=== PATIENT | female | born 1995 | race African-American/Black ===

== ENCOUNTER 2017-12-16 13:11 | Emergency (ER) | payer OTHER ==
[~2017-12-16] VITALS: Ht 162.6 cm; Wt 56.7 kg
[~2017-12-16 13:11] MED LIST: BACTRIM DS TAB1 EACH PO
[2017-12-16] MEDS ORDERED: DOXYCYCLINE 10100 MG PO (16:25)
[2017-12-16 16:28] VITALS: BP 118/70
== END 2017-12-16 16:29 | disposition home or self-care (01) ==
LOC: ER 13:11
DX: L02.412 Cutaneous abscess of left axilla (principal); Z88.2 Allergy status to sulfonamides

== ENCOUNTER 2017-12-22 22:19 | Emergency (ER) | payer OTHER ==
[~2017-12-22] VITALS: Ht 162.6 cm; Wt 59.0 kg
[~2017-12-22 22:19] MED LIST changes: +DOXYCYCLINE 10100 MG PO; +MACROBID 100 M100 M1 PO; +PROMS25 WY RECTAL
[2017-12-22] MEDS ORDERED: PEPTO-BISM262 MG/15 PO (22:31)
[2017-12-22] MEDS ORDERED: PHENERGAN 25 MG25 M1 PO (22:31)
[2017-12-22] MEDS ORDERED: ONDANSETRON HCL4 M2 PO (22:31)
[2017-12-22 22:51] LABS: URINE BLOOD NEGATIVE (Negative); URINE CLARITY SL CLOUDY; URINE GLUCOSE-RANDOM* NEGATIVE (Negative); URINE KETONES 3+ (Negative); URINE NITRITE-REFLEX NEGATIVE (Negative); URINE PROTEIN (DIPSTICK) 1+ (Negative)
[2017-12-22 22:54] LABS: ABSOLUTE NEUTROPHILS 5.2 thou/uL (1.4-8.2); BASOPHILS 0.8 % (0.0-2.0); EOSINOPHILS 0.3 % (0.0-3.0); HEMATOCRIT 38.1 % (37.0-47.0); HEMOGLOBIN 12.8 gm/dL (12.0-15.0); LYMPHOCYTES 23.4 % (24.0-44.0); MCH 29.9 pg (26.0-34.0); MCHC 33.7 g/dL (28.0-37.0); MCV 88.9 fL (80.0-100.0); MONOCYTES 8.1 % (1.0-8.0); PLATELET COUNT 249 thou/uL (150-400); POLYS 67.4 % (36.0-66.0); RBC 4.28 mil/uL (4.20-5.00); RDW 12.7 % (10.5-14.5); WBC 7.7 thou/uL (4.0-11.0)
[2017-12-22 22:55] LABS: ICTOTEST (BILI CONFIRMATORY) Negative (Negative); URINE BILIRUBIN NEGATIVE (Negative); URINE COLOR DARK YELLOW; URINE LEUKOCYTES-REFLEX 1+ (Negative); URINE REDUCING SUBSTANCE NEGATIVE
[2017-12-22 23:02] LABS: ANION GAP 9 mmol/L (7-16); BUN 18 mg/dL (7-18); CALCIUM 9.1 mg/dL (8.5-10.1); CHLORIDE 102 mmol/L (98-107); CO2 27 mmol/L (21-32); GLUCOSE 96 mg/dL (74-106); POTASSIUM 3.1 mmol/L (3.5-5.1); SODIUM 138 mmol/L (136-145)
[2017-12-22 23:10] LABS: MUCUS >6 Heavy strn/LPF (None Seen); SQUAMOUS >10 Many /LPF (0-3); URINE RBC 0-2 Rare /HPF (0-2)
[2017-12-22 23:10] LABS: ALBUMIN 3.8 g/dL (3.4-5.0); LIPASE 171 U/L (73-393); MAGNESIUM 1.9 mg/dL (1.8-2.4); SGOT 12 U/L (15-37); SGPT 13 U/L (30-65); TOTAL BILIRUBIN 0.6 mg/dL (<0.1-1.0); TOTAL PROTEIN 8.1 g/dL (6.4-8.2); TROPONIN-I < 0.04 ng/mL (<0.06)
[2017-12-22 23:11] LABS: BACTERIA-REFLEX >30 Many /HPF (None Seen); CASTS None Seen /LPF (None Seen); CRYSTALS None Seen /LPF (None Seen); URINE WBC-REFLEX 6-15 Few /HPF (0-5)
[2017-12-23 00:58] VITALS: BP 106/68
[2017-12-24] MEDS ORDERED: ZOFRAN ODT4 MG PO (21:29)
[2017-12-24] MEDS ORDERED: PROMS25 WY RECTAL (21:29)
== END 2017-12-23 01:09 | disposition home or self-care (01) ==
LOC: ER 22:19
PROVIDERS: Emergency Medicine
DX: E86.0 Dehydration (principal); E87.6 Hypokalemia; N39.0 Urinary tract infection, site not specified; K59.00 Constipation, unspecified; R11.2 Nausea with vomiting, unspecified; Z88.2 Allergy status to sulfonamides

== ENCOUNTER 2017-12-24 18:24 | Emergency (ER) | payer OTHER ==
[~2017-12-24] VITALS: Ht 162.6 cm; Wt 59.0 kg
[~2017-12-24 18:24] MED LIST changes: +ONDANSETRON HCL4 M2 PO; +PEPTO-BISM262 MG/15 PO; +PHENERGAN 25 MG25 M1 PO
[2017-12-24 18:55] VITALS: BP 120/85
[2017-12-24 20:40] LABS: URINE BILIRUBIN NEGATIVE (Negative); URINE BLOOD NEGATIVE (Negative); URINE CLARITY CLEAR; URINE COLOR YELLOW; URINE GLUCOSE-RANDOM* NEGATIVE (Negative); URINE KETONES 2+ (Negative); URINE LEUKOCYTES-REFLEX NEGATIVE (Negative); URINE NITRITE-REFLEX NEGATIVE (Negative); URINE PROTEIN (DIPSTICK) NEGATIVE (Negative); URINE UROBILINOGEN 0.2 E.U./dl (0.2-1.0)
[2017-12-24 20:52] LABS: CREATININE 0.9 mg/dL (0.6-1.0); POTASSIUM 3.4 mmol/L (3.5-5.1)
[2017-12-24 20:53] LABS: ABSOLUTE NEUTROPHILS 6.3 thou/uL (1.4-8.2); BASOPHILS 0.3 % (0.0-2.0); EOSINOPHILS 0.1 % (0.0-3.0); HEMATOCRIT 37.4 % (37.0-47.0); HEMOGLOBIN 12.3 gm/dL (12.0-15.0); LYMPHOCYTES 13.4 % (24.0-44.0); MCH 29.7 pg (26.0-34.0); MCHC 32.9 g/dL (28.0-37.0); MCV 90.1 fL (80.0-100.0); MONOCYTES 6.4 % (1.0-8.0); PLATELET COUNT 239 thou/uL (150-400); POLYS 79.8 % (36.0-66.0); RBC 4.15 mil/uL (4.20-5.00); RDW 12.8 % (10.5-14.5); WBC 7.9 thou/uL (4.0-11.0)
[2017-12-24 21:09] LABS: ALBUMIN 3.7 g/dL (3.4-5.0); TOTAL BILIRUBIN 0.5 mg/dL (<0.1-1.0); TOTAL PROTEIN 7.4 g/dL (6.4-8.2)
[2017-12-24] MEDS ORDERED: PROMS25 WY RECTAL (21:29)
[2017-12-24] MEDS ORDERED: ZOFRAN ODT4 MG PO (21:29)
[2017-12-25 00:40] LABS: LARGE PLATELETS FEW
== END 2017-12-24 22:54 | disposition home or self-care (01) ==
LOC: ER 18:24
PROVIDERS: Physician Assistant
DX: E86.0 Dehydration (principal); Z88.2 Allergy status to sulfonamides

== ENCOUNTER 2020-04-17 19:58 | Emergency (ER) | payer OTHER ==
[~2020-04-17] VITALS: Ht 162.6 cm; Wt 59.0 kg
[~2020-04-17 19:58] MED LIST changes: +ZOFRAN ODT4 MG PO
[2020-04-17 20:40] LABS: BASOPHILS 0.2 % (0.0-2.0); EOSINOPHILS 0.1 % (0.0-3.0); HEMATOCRIT 38.3 % (37.0-47.0); HEMOGLOBIN 13.1 gm/dL (12.0-15.0); LYMPHOCYTES 7.7 % (24.0-44.0); MCH 31.1 pg (26.0-34.0); MCHC 34.1 g/dL (28.0-37.0); MCV 91.2 fL (80.0-100.0); MONOCYTES 2.7 % (1.0-8.0); PLATELET COUNT 190 thou/uL (150-400); POLYS 89.3 % (36.0-66.0); WBC 7.8 thou/uL (4.0-11.0)
[2020-04-17 20:53] LABS: CALCIUM 9.7 mg/dL (8.5-10.1); CREATININE 0.9 mg/dL (0.6-1.0); POTASSIUM 4.1 mmol/L (3.5-5.1)
[2020-04-17] MEDS ORDERED: NOHOMEMEDICATIONS (20:53)
[2020-04-17 20:58] LABS: ALBUMIN 4.2 g/dL (3.4-5.0); TOTAL BILIRUBIN 0.7 mg/dL (0.2-1.0); TOTAL PROTEIN 9.1 g/dL (6.4-8.2)
[2020-04-17 21:28] LABS: URINE BILIRUBIN 1+ (Negative); URINE BLOOD NEGATIVE (Negative); URINE CLARITY CLEAR; URINE COLOR YELLOW; URINE GLUCOSE-RANDOM* NEGATIVE (Negative); URINE KETONES 3+ (Negative); URINE NITRITE-REFLEX NEGATIVE (Negative); URINE PROTEIN (DIPSTICK) 1+ (Negative); URINE SPECIFIC GRAVITY >= 1.030 (1.005-1.035); URINE UROBILINOGEN 0.2 E.U./dl (0.2-1.0)
[2020-04-17 21:29] LABS: URINE LEUKOCYTES-REFLEX 1+ (Negative)
[2020-04-17 21:30] LABS: ICTOTEST (BILI CONFIRMATORY) Positive (Negative)
[2020-04-17 21:37] LABS: URINE REDUCING SUBSTANCE 0 %
[2020-04-17 21:42] LABS: CASTS None Seen /LPF (None Seen); MUCUS 0-3 Light strn/LPF (None Seen); SQUAMOUS None Seen /LPF (0-3); URINE RBC 0-2 Rare /HPF (0-2); URINE WBC-REFLEX 0-5 Rare /HPF (0-5)
[2020-04-17 21:43] LABS: BACTERIA-REFLEX 1-9 Few /HPF (None Seen); CRYSTALS None Seen /LPF (None Seen)
[2020-04-17] MEDS ORDERED: PEPCID20 MG PO (21:57)
[2020-04-17] MEDS ORDERED: ZOFRAN ODT4 MG PO (21:57)
[2020-04-17 22:06] VITALS: BP 105/70
== END 2020-04-17 22:10 | disposition home or self-care (01) ==
LOC: ER 19:58
PROVIDERS: Emergency Medicine
DX: R11.2 Nausea with vomiting, unspecified (principal); R10.9 Unspecified abdominal pain; Z88.2 Allergy status to sulfonamides

== ENCOUNTER 2020-04-18 17:33 | Emergency (ER) | payer OTHER ==
[~2020-04-18] VITALS: Ht 162.6 cm; Wt 56.7 kg
[~2020-04-18 17:33] MED LIST changes: +NOHOMEMEDICATIONS; +PEPCID20 MG PO
[2020-04-18 20:03] LABS: ABSOLUTE NEUTROPHILS 7.7 thou/uL (1.4-8.2); BASOPHILS 0.4 % (0.0-2.0); EOSINOPHILS 0.1 % (0.0-3.0); HEMATOCRIT 36.4 % (37.0-47.0); HEMOGLOBIN 12.4 gm/dL (12.0-15.0); LYMPHOCYTES 9.5 % (24.0-44.0); MCH 31.3 pg (26.0-34.0); MONOCYTES 4.9 % (1.0-8.0); PLATELET COUNT 197 thou/uL (150-400); POLYS 85.1 % (36.0-66.0); RBC 3.95 mil/uL (4.20-5.00); RDW 12.9 % (10.5-14.5)
[2020-04-18 20:16] LABS: CALCIUM 9.4 mg/dL (8.5-10.1); POTASSIUM 3.2 mmol/L (3.5-5.1)
[2020-04-18 20:21] LABS: ALBUMIN 4.3 g/dL (3.4-5.0); TOTAL BILIRUBIN 0.5 mg/dL (0.2-1.0)
[2020-04-18 21:34] VITALS: BP 109/59
== END 2020-04-18 21:36 | disposition home or self-care (01) ==
LOC: ER 17:33
PROVIDERS: Emergency Medicine
DX: R11.2 Nausea with vomiting, unspecified (principal); Z79.899 Other long term (current) drug therapy; Z88.2 Allergy status to sulfonamides

== ENCOUNTER 2020-04-20 08:00 | Emergency (ER) | payer OTHER ==
[~2020-04-20] VITALS: Ht 162.6 cm; Wt 56.7 kg
[2020-04-20] MEDS ORDERED: COMPAZINE5 M1 PO (10:03)
[2020-04-20 10:18] VITALS: BP 122/79
== END 2020-04-20 10:19 | disposition home or self-care (01) ==
LOC: ER 08:00
DX: R11.2 Nausea with vomiting, unspecified (principal); Z79.899 Other long term (current) drug therapy; Z88.2 Allergy status to sulfonamides

== ENCOUNTER 2020-09-09 03:03 | Emergency (ER) | payer OTHER ==
[~2020-09-09] VITALS: Ht 162.6 cm; Wt 54.4 kg
[~2020-09-09 03:03] MED LIST changes: +COMPAZINE5 M1 PO
[2020-09-09 04:00] LABS: ABSOLUTE NEUTROPHILS 2.9 thou/uL (1.4-8.2); HEMOGLOBIN 13.9 gm/dL (12.0-15.0); WBC 4.9 thou/uL (4.0-11.0)
[2020-09-09 04:01] LABS: BASOPHILS 0.1 % (0.0-2.0); EOSINOPHILS 0.1 % (0.0-3.0); MCH 29.9 pg (26.0-34.0); MCHC 33.1 g/dL (28.0-37.0); MCV 90.1 fL (80.0-100.0); MONOCYTES 14.7 % (1.0-8.0); PLATELET COUNT 225 thou/uL (150-400); POLYS 59.1 % (36.0-66.0); RBC 4.66 mil/uL (4.20-5.00); RDW 12.3 % (10.5-14.5)
[2020-09-09 04:09] LABS: ALBUMIN 4.1 g/dL (3.4-5.0); CALCIUM 9.5 mg/dL (8.5-10.1); DIRECT BILIRUBIN 0.2 mg/dL (<0.1-0.2); TOTAL BILIRUBIN 0.9 mg/dL (0.2-1.0); TOTAL PROTEIN 8.7 g/dL (6.4-8.2)
[2020-09-09 04:11] LABS: POTASSIUM 2.7 mmol/L (3.5-5.1)
[2020-09-09 04:59] LABS: URINE BILIRUBIN 1+ (Negative); URINE BLOOD NEGATIVE (Negative); URINE CLARITY CLEAR; URINE COLOR YELLOW; URINE GLUCOSE-RANDOM* NEGATIVE (Negative); URINE KETONES 3+ (Negative); URINE LEUKOCYTES-REFLEX NEGATIVE (Negative); URINE NITRITE-REFLEX NEGATIVE (Negative); URINE PROTEIN (DIPSTICK) TRACE (Negative)
[2020-09-09 05:05] LABS: ICTOTEST (BILI CONFIRMATORY) Positive (Negative)
[2020-09-09] MEDS ORDERED: ZOFRAN ODT4 MG PO (05:56)
[2020-09-09 06:34] VITALS: BP 113/73
== END 2020-09-09 06:46 | disposition home or self-care (01) ==
LOC: ER 03:03
PROVIDERS: Emergency Medicine
DX: U07.1 COVID-19 (principal); E87.6 Hypokalemia; R82.4 Acetonuria; R19.7 Diarrhea, unspecified; R11.2 Nausea with vomiting, unspecified; Z88.2 Allergy status to sulfonamides

== ENCOUNTER 2021-08-26 03:09 | Emergency (ER) | payer OTHER ==
[~2021-08-26] VITALS: Ht 162.6 cm; Wt 54.4 kg
[2021-08-26 03:25] VITALS: BP 136/74
[2021-08-26 06:24] LABS: HEMATOCRIT 38.5 % (37.0-47.0); HEMOGLOBIN 12.9 gm/dL (12.0-15.0); MCH 30.4 pg (26.0-34.0); MCHC 33.4 g/dL (28.0-37.0); RBC 4.22 mil/uL (4.20-5.00); RDW 13.1 % (10.5-14.5); WBC 5.8 thou/uL (4.0-11.0)
[2021-08-26 06:30] LABS: CALCIUM 9.2 mg/dL (8.5-10.1); CREATININE 0.8 mg/dL (0.6-1.0)
[2021-08-26 06:32] LABS: URINE BLOOD NEGATIVE (Negative); URINE CLARITY CLEAR; URINE COLOR YELLOW; URINE GLUCOSE-RANDOM* NEGATIVE (Negative); URINE KETONES 3+ (Negative); URINE LEUKOCYTES-REFLEX TRACE (Negative); URINE NITRITE-REFLEX NEGATIVE (Negative); URINE PROTEIN (DIPSTICK) TRACE (Negative)
[2021-08-26 06:40] LABS: ICTOTEST (BILI CONFIRMATORY) Negative (Negative); URINE BILIRUBIN NEGATIVE (Negative); URINE REDUCING SUBSTANCE NEGATIVE
[2021-08-26 06:45] LABS: POTASSIUM 2.9 mmol/L (3.5-5.1)
[2021-08-26] MEDS ORDERED: ZOFRAN ODT4 MG PO (07:17)
[2021-08-26] MEDS ORDERED: KLOR-CON 1010 MEQ PO (07:17)
== END 2021-08-26 07:40 | disposition home or self-care (01) ==
LOC: ER 03:09
PROVIDERS: Emergency Medicine
DX: R11.2 Nausea with vomiting, unspecified (principal); Z20.822 Contact with and (suspected) exposure to COVID-19; E87.6 Hypokalemia; Z79.899 Other long term (current) drug therapy; Z88.2 Allergy status to sulfonamides; Z88.8 Allergy status to other drugs, medicaments and biological substances